=== PATIENT | female | born 1970 | race Caucasian/White ===

== ENCOUNTER 2018-02-07 21:14 | Emergency (ER) | payer OTHER ==
[~2018-02-07] VITALS: Ht 157.5 cm; Wt 99.8 kg
[2018-02-07] MEDS ORDERED: DOXYCYCLINE MO100 MG PO (23:08)
[2018-02-07 23:34] VITALS: BP 155/109
== END 2018-02-07 23:35 | disposition home or self-care (01) ==
LOC: EME 21:14 → RME 21:14
DX: L03.211 Cellulitis of face (principal); I10 Essential (primary) hypertension; E78.5 Hyperlipidemia, unspecified; F17.200 Nicotine dependence, unspecified, uncomplicated
CPT/HCPCS: 99281; 99284